=== PATIENT | female | born 1955 | race Caucasian/White ===

== ENCOUNTER → 2019-05-10 | Outpatient (CLI) | payer OTHER ==
--- NOTE | 2019-05-10 11:59 | RAD ---
EXAM DESCRIPTION: Shoulder,Left 2 or More Views CLINICAL HISTORY: 64 years Female, SHOULDER PAIN COMPARISON: None. FINDINGS: Two views of the left shoulder show no acute fracture or malalignment. Glenohumeral joint space narrowing with a prominent osteophyte arising from the inferior medial margin of the humeral head. Moderate degenerative changes in the left AC joint including undersurface spurring. No apparent left-sided rib fracture or soft tissue abnormality. IMPRESSION: Moderately advanced degenerative changes without acute left shoulder abnormality. Electronically signed by: Thong Campos MD 05/10/2019 11:57 AM CDT
== END ==
LOC: LAB.O 11:07
PROVIDERS: ATTEND Nurse Practitioner Family
DX: M19.012 Primary osteoarthritis, left shoulder (principal); R03.0 Elevated blood-pressure reading, without diagnosis of hypertension